=== PATIENT | female | born 1960 | race Caucasian/White ===

== ENCOUNTER 2019-04-11 18:54 | Emergency (ER) | payer OTHER ==
[~2019-04-11] VITALS: Ht 160 cm; Wt 102.1 kg
[2019-04-11] MEDS ORDERED: LOSA50 PO (20:08)
[2019-04-11] MEDS ORDERED: AMLO10 PO (20:08)
[2019-04-11] MEDS ORDERED: Miralax17 GM PO (20:46)
[2019-04-11] MEDS ORDERED: Percocet 5-3251 EACH PO (20:46)
[2019-04-11] MEDS ORDERED: Zofran4 MG PO (20:46)
[2019-04-11] MEDS ORDERED: IBUP400 PO (20:46)
== END 2019-04-11 21:13 | disposition home or self-care (01) ==
LOC: ER 18:54
DX: S52.122A Displaced fracture of head of left radius, initial encounter for closed fracture (principal); I10 Essential (primary) hypertension; Z79.899 Other long term (current) drug therapy; W01.10XA Fall on same level from slipping, tripping and stumbling with subsequent striking against unspecified object, initial encounter
CPT/HCPCS: 29105; 73080; 96374-59; 96375-59; 99283-25; A9270; A9270-GY; J1170; J2405